=== PATIENT | male | born 1990 | race Caucasian/White ===

== ENCOUNTER 2022-09-06 07:56 | Emergency (ER) | payer OTHER, SELFPAY ==
[2022-09-06] VITALS (12 sets, daily range): BP systolic 128–171; BP diastolic 90–120; PULSE 67–85; RESP 16; TEMP 36.8; O2SAT 96–98; BMI 39.5
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
[2022-09-06] MEDS: 0.9 % SODIUM CHLORIDE 1000 ml 1,000 ML 6000 ML IV (08:30)
[2022-09-06 08:33] LABS: Basophils Absolute Auto 0.06 K/uL (0.00-0.30); Basophils Percent Auto 0.7 % (0.0-3.0); Eosinophils Absolute Auto 0.25 K/uL (0.00-0.50); Eosinophils Percent Auto 2.9 % (0.0-7.0); Hematocrit 38.6 % (37.0-53.0); Hemoglobin* 12.8 gm/dL (13.5-17.5); Immature Granulocytes Abs Auto 0.02 K/uL (0.00-0.30); Immature Granulocytes Pct Auto 0.2 %; Lymphocytes Absolute Auto 3.34 K/uL (0.90-2.90); Lymphocytes Percent Auto 38.5 % (20-44); Mean Corpuscular HGB Conc 33 gm/dL (32-36); Mean Corpuscular Hemoglobin 28 pg (26-34); Mean Corpuscular Volume 85 fL (80-100); Monocytes Percent Auto 7.8 % (0.0-11.0); Neutrophils Absolute Auto 4.32 K/uL (1.7-7.0); Neutrophils Percent Auto 49.9 % (42.0-72.0); Platelet Count* 251 K/uL (140-440); RDW Coefficient of Variation % 13.5 % (11.5-15.5); Red Blood Count 4.57 m/uL (4.30-5.90); Slide Review Reflex No; White Blood Count* 8.67 K/uL (4.50-11.00)
[2022-09-06] MEDS: ONDANSETRON 2 MG/ML inj 4 MG IVP (08:34)
[2022-09-06 08:49] LABS: Chloride* 110 mmol/L (96-114); Potassium* 3.8 mmol/L (3.6-5.1); Sodium* 142 mmol/L (135-149)
[2022-09-06 08:50] LABS: Albumin* 3.8 g/dL (3.3-5.0)
[2022-09-06 08:52] LABS: Blood Urea Nitrogen* 17 mg/dL (5-24); Carbon Dioxide* 24 mmol/L (20-32); Creatinine* 0.7 mg/dL (0.5-1.5); Est. Creatinine Clearance* 143.86; Estimated Glomerular Filt Rate 124 ml/min
[2022-09-06 08:53] LABS: Alanine Aminotransferase* 53 U/L (4-50); Alkaline Phosphatase* 81 U/L (40-150); Aspartate Amino Transferase* 35 U/L (12-35); Bilirubin Direct* 0.2 mg/dL (0.0-0.5); Bilirubin Total* 0.3 mg/dL (0.1-1.5); Calcium* 8.4 mg/dL (8.4-10.6); Glucose* 129 mg/dL (60-115); Total Protein* 6.8 g/dL (6.0-8.3)
[2022-09-06 08:55] LABS: C Reactive Protein* 1.2 mg/dL (0.5-1.0)
== END 2022-09-06 09:14 | disposition home or self-care (01) ==
PROVIDERS: Emergency Provider Family Medicine
DX: E86.0 Dehydration (principal)
CPT/HCPCS: 36415; 80048; 80076; 84484; 85025; 86140; 93005; 96374; 99284; J2405; J7030

== ENCOUNTER 2024-09-23 12:16 | Emergency (ER) | payer OTHER, SELFPAY ==
--- OUTSIDE RECORDS SUMMARY | 2024-09-23 12:19 | XMS_ITS | Clinical Summary ---
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 PCP - General 05/23/13
[2024-09-23 12:24] VITALS: BP 130/88; PULSE 95; RESP 18; TEMP 36.8; O2SAT 97; BMI 40.3
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
[2024-09-23] MEDS: DEXAMETHASONE 10 MG/ML PF IM (14:09)
[2024-09-23] MEDS: KETOROLAC 30 MG/ML inj IM (14:09)
== END 2024-09-23 14:14 | disposition home or self-care (01) ==
LOC: ED 14:05
PROVIDERS: Emergency Provider Family Medicine
DX: M54.16 Radiculopathy, lumbar region (principal)
CPT/HCPCS: 96372; 99283; 99284; J1100; J1885